=== PATIENT | female | born 1970 | race Caucasian/White ===

== ENCOUNTER 2019-12-02 20:27 | Emergency (ER) | payer OTHER ==
[~2019-12-02] VITALS: Ht 167.6 cm; Wt 71.2 kg
[2019-12-02 20:47] VITALS: BP_SYST 155
--- NOTE | 2019-12-02 20:52 | NUR ---
tPatient triaged and placed in waiting room. VSS and patient appears in no acute distress at this time. Accompanied by , awaiting available bed, and MD notified of need for MSE.
[2019-12-02 21:21] LABS: BILIRUBIN,URINE NEGATIVE (NEGATIVE); BLOOD, URINE NEGATIVE (NEGATIVE); GLUCOSE,URINE NEGATIVE (NEGATIVE); KETONES,URINE NEGATIVE (NEGATIVE); LEUKOCYTE ESTERASE ,URINE 2+ (NEGATIVE); NITRITE, URINE NEGATIVE (NEGATIVE); PROTEIN URINE NEGATIVE (NEGATIVE); UROBILINOGEN,URINE 0.2 (0.2-1.0)
[2019-12-02 21:24] LABS: COLOR,URINE STRAW (YELLOW)
[2019-12-02 21:25] LABS: CLARITY/URINE SLIGHTLY HAZY (CLEAR)
[2019-12-02 22:37] LABS: BACTERIA,URINE FEW /HPF (None Seen); MUCUS,URINE None Seen /LPF (None Seen); RBC,URINE 0-3 /HPF (0-3); WBC,URINE 20-50 /HPF (0-3)
--- NOTE | 2019-12-03 00:24 | NUR ---
Patient to ER bed 7 to gown for evaluation. Side rails up.
--- NOTE | 2019-12-03 00:35 | NUR ---
Pt came to the ED for lower back pain since 1600 yesterday. Reports that pain is sharp. States that she had a kidney stone september 2019. Pt took norco with some improvement. States some nausea and chills. No other complaints/injuries noted. Will cont. to monitor.
--- NOTE | 2019-12-03 01:00 | NUR ---
ER at bedside examining patient.
[2019-12-03] MEDS ORDERED: cefTRIAXone 1 GM in LIDOCAINE 1%, 20 ML MDV 2.1 ML IM ONE (01:45)
[2019-12-03 02:37] VITALS: BP_SYST 155
--- NOTE | 2019-12-03 02:37 | NUR ---
Patient given written and verbal discharge instructions and verbalizes understanding. ER MD Dr. Powers discussed with patient the results and treatment provided. Patient in stable condition. ID arm band removed. Rx of norco and bactrim given. Patient educated on pain management and to follow up with PMD. Pain Scale 0/10. Opportunity for questions provided and answered. Medication side effect fact sheet provided.
== END 2019-12-03 02:37 | disposition home or self-care (01) ==
LOC: SED 20:27
DX: N39.0 Urinary tract infection, site not specified (principal)
CPT/HCPCS: 81000; 87086; 96372; 99283; J0696; J2001